=== PATIENT | female | born 1930 | race Hispanic/Latino ===

== ENCOUNTER → 2018-04-20 | Outpatient (CLI) | payer MEDICARE ==
[~2018-04-20] MED LIST: FOSINOPRIL-HCT1 EACH; LIPITOR10 MG PO; VERAPAMIL ER240 M1 PO
== END ==
LOC: US 12:21
PROVIDERS: ATTEND Internal Medicine
DX: N18.3 Chronic kidney disease, stage 3 (moderate) (principal); I10 Essential (primary) hypertension
CPT/HCPCS: 76770